=== PATIENT | female | born 1990 | race Caucasian/White ===

== ENCOUNTER 2019-02-14 02:21 | Emergency (ER) | payer OTHER, MEDICAID ==
[~2019-02-14] VITALS: Ht 162.6 cm; Wt 117.9 kg
[2019-02-14] MEDS ORDERED: BIRTH CONTROL PILL (02:30)
[2019-02-14] MEDS ORDERED: BLOOD PRESSURE PILL (02:31)
[2019-02-14] MEDS ORDERED: IRON325 PO (02:31)
[2019-02-14 03:04] LABS: URINE BILIRUBIN NEGATIVE (Negative); URINE BLOOD NEGATIVE (Negative); URINE CLARITY CLEAR; URINE COLOR STRAW; URINE GLUCOSE-RANDOM NEGATIVE (Negative); URINE KETONES NEGATIVE (Negative); URINE LEUKOCYTES-REFLEX NEGATIVE (Negative); URINE NITRITE-REFLEX NEGATIVE (Negative); URINE PROTEIN NEGATIVE (Negative); URINE SPECIFIC GRAVITY <= 1.005 (1.005-1.030); URINE UROBILINOGEN 0.2 E.U./dl (0.2-1.0)
[2019-02-14] MEDS ORDERED: PHENERGAN 25 MG25 M1 PO (03:26)
[2019-02-14 03:33] VITALS: BP 143/86
== END 2019-02-14 03:33 | disposition home or self-care (01) ==
LOC: M.ERS 02:21
PROVIDERS: Emergency Medicine
DX: F41.9 Anxiety disorder, unspecified (principal); R11.0 Nausea; I10 Essential (primary) hypertension; Z86.2 Personal history of diseases of the blood and blood-forming organs and certain disorders involving the immune mechanism; Z88.1 Allergy status to other antibiotic agents

== ENCOUNTER 2020-05-01 13:59 | Emergency (ER) | payer OTHER, MEDICAID ==
[~2020-05-01] VITALS: Ht 160 cm; Wt 117.9 kg
[~2020-05-01 13:59] MED LIST: BIRTH CONTROL PILL; BLOOD PRESSURE PILL; IRON325 PO; PHENERGAN 25 MG25 M1 PO
[2020-05-01 14:19] LABS: URINE BLOOD 3+ (Negative); URINE CLARITY CLEAR; URINE COLOR YELLOW; URINE GLUCOSE-RANDOM NEGATIVE (Negative); URINE KETONES TRACE (Negative); URINE LEUKOCYTES-REFLEX TRACE (Negative); URINE NITRITE-REFLEX NEGATIVE (Negative); URINE PROTEIN 2+ (Negative)
[2020-05-01] MEDS ORDERED: NIFEDIPINE ER30 M1 PO (14:19)
[2020-05-01] MEDS ORDERED: METFORMIN HCL500 M3 PO (14:19)
[2020-05-01] MEDS ORDERED: ESCITALOPRA5 MG/5 ML PO (14:20)
[2020-05-01 14:22] LABS: URINE BILIRUBIN 1+ (Negative)
[2020-05-01 14:27] LABS: BACTERIA-REFLEX 1-9 Few /HPF (None Seen); CASTS None Seen /LPF (None Seen); CRYSTALS None Seen /LPF (None Seen); ICTOTEST (BILI CONFIRMATORY) Negative (Negative); MUCUS None Seen strn/LPF (None Seen); SQUAMOUS 4-10 Moderate /LPF (0-3); URINE RBC >20 Many /HPF (0-2); URINE WBC-REFLEX 0-5 Rare /HPF (0-5)
[2020-05-01 14:54] LABS: ABSOLUTE EOSINOPHILS 0.2 thou/uL (0.0-0.7); ABSOLUTE LYMPHOCYTES 3.5 thou/uL (0.8-5.3); ABSOLUTE MONOCYTES 0.9 thou/uL (0.0-1.2); ABSOLUTE NEUTROPHILS 9.1 thou/uL (1.6-8.1); BASOPHILS 0.3 %; EOSINOPHILS 1.6 %; HEMOGLOBIN 12.4 gm/dL (12.0-15.0); LYMPHOCYTES 25.5 %; MCH 25.2 pg (26.0-34.0); MCHC 32.7 g/dL (28.0-37.0); MCV 77.1 fL (80.0-100.0); MONOCYTES 6.5 %; MPV 9.5 fl. (7.2-11.1); NUCLEATED RBCS 0 /100WBC; PLATELET COUNT* 271 thou/uL (150-400); POLYS 66.1 %; RBC 4.93 mil/uL (4.20-5.00); RDW-CV 15.5 % (10.5-14.5); WBC 13.7 thou/uL (4.0-11.0)
[2020-05-01 15:07] LABS: CALCIUM 8.7 mg/dL (8.5-10.1); CREATININE 0.8 mg/dL (0.6-1.3); POTASSIUM 4.2 mmol/L (3.5-5.1)
[2020-05-01 15:12] LABS: ALBUMIN 3.6 g/dL (3.4-5.0); TOTAL BILIRUBIN 0.2 mg/dL (<0.1-1.0); TOTAL PROTEIN 7.6 g/dL (6.4-8.2)
[2020-05-01] MEDS ORDERED: BENTYL 20 MG TA20 M1 PO (16:55)
[2020-05-01] MEDS ORDERED: IBUPROFEN 800800 M1 PO (16:55)
[2020-05-01 17:22] VITALS: BP 140/90
== END 2020-05-01 17:23 | disposition home or self-care (01) ==
LOC: M.ERS 13:59
PROVIDERS: Nurse Practitioner Family
DX: N92.0 Excessive and frequent menstruation with regular cycle (principal); I10 Essential (primary) hypertension; Z86.2 Personal history of diseases of the blood and blood-forming organs and certain disorders involving the immune mechanism; Z88.1 Allergy status to other antibiotic agents

== ENCOUNTER 2020-08-04 20:07 | Emergency (ER) | payer OTHER, MEDICAID ==
[~2020-08-04] VITALS: Ht 160 cm; Wt 117.9 kg
[~2020-08-04 20:07] MED LIST changes: +BENTYL 20 MG TA20 M1 PO; +ESCITALOPRA5 MG/5 ML PO; +IBUPROFEN 800800 M1 PO; +METFORMIN HCL500 M3 PO; +NIFEDIPINE ER30 M1 PO
[2020-08-04 21:03] LABS: INFLUENZA A ANTIGEN Negative (Negative); INFLUENZA B ANTIGEN Negative (Negative)
[2020-08-04] MEDS ORDERED: PREDNISONE 20 M20 MG PO (22:36)
[2020-08-04 22:45] VITALS: BP 174/109
== END 2020-08-04 22:45 | disposition home or self-care (01) ==
LOC: M.ERS 20:07
PROVIDERS: Personal Emergency Response Attendant
DX: B34.9 Viral infection, unspecified (principal); Z20.822 Contact with and (suspected) exposure to COVID-19; I10 Essential (primary) hypertension; Z88.1 Allergy status to other antibiotic agents; Z86.2 Personal history of diseases of the blood and blood-forming organs and certain disorders involving the immune mechanism

== ENCOUNTER 2020-08-26 19:55 | Emergency (ER) | payer OTHER, MEDICAID ==
[~2020-08-26] VITALS: Ht 162.6 cm; Wt 127.0 kg
[~2020-08-26 19:55] MED LIST changes: +PREDNISONE 20 M20 MG PO
[2020-08-26] MEDS ORDERED: NAPROSYN500 MG PO ×3 (21:08→21:11)
[2020-08-26 21:29] VITALS: BP 125/95
== END 2020-08-26 21:30 | disposition home or self-care (01) ==
LOC: M.ERS 19:55
DX: M25.531 Pain in right wrist (principal); M79.641 Pain in right hand; I10 Essential (primary) hypertension; Z86.2 Personal history of diseases of the blood and blood-forming organs and certain disorders involving the immune mechanism; Z88.1 Allergy status to other antibiotic agents

== ENCOUNTER 2020-09-12 20:06 | Emergency (ER) | payer OTHER, MEDICAID ==
[~2020-09-12] VITALS: Ht 162.6 cm; Wt 127.0 kg
[~2020-09-12 20:06] MED LIST changes: +NAPROSYN500 MG PO
[2020-09-12 21:18] LABS: URINE BILIRUBIN NEGATIVE (Negative); URINE BLOOD 3+ (Negative); URINE COLOR YELLOW; URINE GLUCOSE-RANDOM NEGATIVE (Negative); URINE KETONES NEGATIVE (Negative); URINE NITRITE-REFLEX NEGATIVE (Negative); URINE PROTEIN NEGATIVE (Negative); URINE SPECIFIC GRAVITY 1.025 (1.005-1.030)
[2020-09-12 21:18] LABS: ABSOLUTE EOSINOPHILS 0.3 thou/uL (0.0-0.7); ABSOLUTE NEUTROPHILS 11.5 thou/uL (1.6-8.1); BASOPHILS 0.2 %; EOSINOPHILS 1.9 %; HEMATOCRIT 37.9 % (37.0-47.0); LYMPHOCYTES 18.8 %; MCH 23.3 pg (26.0-34.0); MCHC 31.7 g/dL (28.0-37.0); MCV 73.4 fL (80.0-100.0); MONOCYTES 6.1 %; MPV 9.2 fl. (7.2-11.1); NUCLEATED RBCS 0 /100WBC; PLATELET COUNT* 222 thou/uL (150-400); RBC 5.16 mil/uL (4.20-5.00); RDW-CV 17.1 % (10.5-14.5); WBC 15.8 thou/uL (4.0-11.0)
[2020-09-12 21:19] LABS: URINE CLARITY SL HAZY; URINE LEUKOCYTES-REFLEX 2+ (Negative)
[2020-09-12 21:24] LABS: MUCUS None Seen strn/LPF (None Seen); SQUAMOUS >10 Many /LPF (0-3)
[2020-09-12 21:25] LABS: BACTERIA-REFLEX 1-9 Few /HPF (None Seen); CASTS None Seen /LPF (None Seen); CRYSTALS None Seen /LPF (None Seen); URINE WBC-REFLEX >25 Many /HPF (0-5)
[2020-09-12 21:28] LABS: CALCIUM 9.6 mg/dL (8.5-10.1); CREATININE 0.7 mg/dL (0.6-1.3); POTASSIUM 3.4 mmol/L (3.5-5.1)
[2020-09-12 21:33] LABS: ALBUMIN 3.6 g/dL (3.4-5.0); TOTAL BILIRUBIN 0.3 mg/dL (<0.1-1.0); TOTAL PROTEIN 7.6 g/dL (6.4-8.2)
[2020-09-12] MEDS ORDERED: ONDANSETRON ODT4 MG PO (21:42)
[2020-09-12] MEDS ORDERED: FLAGYL500 M1 PO (21:42)
[2020-09-12] MEDS ORDERED: CEPHALEXIN500 MG PO (21:44)
[2020-09-12 21:54] VITALS: BP 129/93
== END 2020-09-12 21:45 | disposition home or self-care (01) ==
LOC: M.ERS 20:06
PROVIDERS: Physician Assistant
DX: R11.2 Nausea with vomiting, unspecified (principal); N39.0 Urinary tract infection, site not specified; A59.9 Trichomoniasis, unspecified; E11.9 Type 2 diabetes mellitus without complications; I10 Essential (primary) hypertension; Z86.2 Personal history of diseases of the blood and blood-forming organs and certain disorders involving the immune mechanism; Z88.1 Allergy status to other antibiotic agents

== ENCOUNTER 2020-12-04 18:52 | Emergency (ER) | payer OTHER, MEDICAID ==
[~2020-12-04] VITALS: Ht 160 cm; Wt 122.5 kg
[~2020-12-04 18:52] MED LIST changes: +CEPHALEXIN500 MG PO; +FLAGYL500 M1 PO; +ONDANSETRON ODT4 MG PO
[2020-12-04 19:36] LABS: URINE BILIRUBIN NEGATIVE (Negative); URINE BLOOD 2+ (Negative); URINE CLARITY CLOUDY; URINE COLOR YELLOW; URINE GLUCOSE-RANDOM NEGATIVE (Negative); URINE KETONES NEGATIVE (Negative); URINE NITRITE-REFLEX NEGATIVE (Negative); URINE PROTEIN NEGATIVE (Negative); URINE SPECIFIC GRAVITY >= 1.030 (1.005-1.030); URINE UROBILINOGEN 0.2 E.U./dl (0.2-1.0)
[2020-12-04 19:46] LABS: URINE LEUKOCYTES-REFLEX 2+ (Negative)
[2020-12-04 19:48] LABS: SQUAMOUS 4-10 Moderate /LPF (0-3)
[2020-12-04 19:49] LABS: BACTERIA-REFLEX 1-9 Few /HPF (None Seen); CASTS None Seen /LPF (None Seen); CRYSTALS None Seen /LPF (None Seen)
[2020-12-04] MEDS ORDERED: FLAGYL500 M1 PO (20:01)
[2020-12-04 20:53] VITALS: BP 151/106
== END 2020-12-04 20:53 | disposition home or self-care (01) ==
LOC: M.ERS 18:52
PROVIDERS: Personal Emergency Response Attendant
DX: A59.9 Trichomoniasis, unspecified (principal); I10 Essential (primary) hypertension; E11.9 Type 2 diabetes mellitus without complications; Z20.822 Contact with and (suspected) exposure to COVID-19; Z79.82 Long term (current) use of aspirin; Z79.1 Long term (current) use of non-steroidal anti-inflammatories (NSAID)

== ENCOUNTER 2020-12-30 00:18 | Emergency (ER) | payer BC, OTHER, MEDICAID ==
[~2020-12-30] VITALS: Ht 162.6 cm; Wt 113.4 kg
[2020-12-30 04:19] VITALS: BP 146/105
== END 2020-12-30 04:19 | disposition home or self-care (01) ==
LOC: M.ERS 00:18
DX: S63.501A Unspecified sprain of right wrist, initial encounter (principal); I10 Essential (primary) hypertension; E11.9 Type 2 diabetes mellitus without complications; E66.01 Morbid (severe) obesity due to excess calories; Z88.1 Allergy status to other antibiotic agents; W09.8XXA Fall on or from other playground equipment, initial encounter; Y93.44 Activity, trampolining; Y92.89 Other specified places as the place of occurrence of the external cause; Y99.8 Other external cause status

== ENCOUNTER 2021-01-07 20:05 | Emergency (ER) | payer OTHER, MEDICAID ==
[~2021-01-07] VITALS: Ht 162.6 cm; Wt 126.1 kg
[2021-01-07 20:51] LABS: URINE BILIRUBIN NEGATIVE (Negative); URINE BLOOD NEGATIVE (Negative); URINE CLARITY CLEAR; URINE COLOR YELLOW; URINE GLUCOSE-RANDOM NEGATIVE (Negative); URINE KETONES NEGATIVE (Negative); URINE LEUKOCYTES-REFLEX NEGATIVE (Negative); URINE NITRITE-REFLEX NEGATIVE (Negative); URINE PROTEIN NEGATIVE (Negative); URINE SPECIFIC GRAVITY >= 1.030 (1.005-1.030); URINE UROBILINOGEN 0.2 E.U./dl (0.2-1.0)
[2021-01-07 21:31] LABS: HEMOGLOBIN 13.1 gm/dL (12.0-15.0); MCHC 32.8 g/dL (28.0-37.0); MCV 82.1 fL (80.0-100.0); MPV 9.6 fl. (7.2-11.1); RBC 4.87 mil/uL (4.20-5.00); RDW-CV 13.6 % (10.5-14.5); WBC 11.3 thou/uL (4.0-11.0)
[2021-01-07 21:40] LABS: CALCIUM 9.3 mg/dL (8.5-10.1); CREATININE 0.8 mg/dL (0.6-1.3); POTASSIUM 3.9 mmol/L (3.5-5.1)
[2021-01-07 21:44] LABS: ALBUMIN 3.9 g/dL (3.4-5.0); TOTAL BILIRUBIN 0.2 mg/dL (<0.1-1.0); TOTAL PROTEIN 7.4 g/dL (6.4-8.2)
[2021-01-07] MEDS ORDERED: DICYCLOMINE HCL20 MG PO (22:04)
[2021-01-07 22:08] VITALS: BP 150/80
== END 2021-01-07 22:10 | disposition home or self-care (01) ==
LOC: M.ERS 20:05
PROVIDERS: Nurse Practitioner Family; Personal Emergency Response Attendant
DX: K59.00 Constipation, unspecified (principal); I10 Essential (primary) hypertension; E11.9 Type 2 diabetes mellitus without complications; E66.01 Morbid (severe) obesity due to excess calories; Z87.442 Personal history of urinary calculi; Z79.899 Other long term (current) drug therapy; Z88.1 Allergy status to other antibiotic agents

== ENCOUNTER 2021-06-01 18:14 | Emergency (ER) | payer OTHER, MEDICAID ==
[~2021-06-01] VITALS: Ht 162.6 cm; Wt 106.1 kg
[~2021-06-01 18:14] MED LIST changes: +DICYCLOMINE HCL20 MG PO
[2021-06-01] MEDS ORDERED: FLEXERIL PO (20:03)
[2021-06-01 20:20] VITALS: BP 115/70
== END 2021-06-01 20:20 | disposition home or self-care (01) ==
LOC: M.ERS 18:14
DX: M25.572 Pain in left ankle and joints of left foot (principal); M79.661 Pain in right lower leg; I10 Essential (primary) hypertension; E11.9 Type 2 diabetes mellitus without complications; E66.01 Morbid (severe) obesity due to excess calories; Z79.899 Other long term (current) drug therapy; Z88.1 Allergy status to other antibiotic agents; X58.XXXA Exposure to other specified factors, initial encounter; Y93.89 Activity, other specified; Y92.89 Other specified places as the place of occurrence of the external cause; Y99.8 Other external cause status